=== PATIENT | male | born 1985 | race Caucasian/White ===

== ENCOUNTER 2018-08-31 14:35 | Emergency (ER) | payer SELFPAY ==
[~2018-08-31] VITALS: Ht 167.6 cm; Wt 131.1 kg
[2018-08-31 14:46] VITALS: BP 135/87; Ht 167.6 cm; Wt 131.1 kg
== END 2018-08-31 16:16 | disposition home or self-care (01) ==
LOC: ED 14:35
DX: L02.215 Cutaneous abscess of perineum (principal)